=== PATIENT | female | born 1955 | race African-American/Black ===

== ENCOUNTER 2020-03-28 18:14 | Inpatient (IN) | payer MEDICAID, OTHER ==
[~2020-03-28] VITALS: Ht 165.1 cm; Wt 79.8 kg
[2020-03-28] MEDS ORDERED: ONDANSETRON HCL 4MG/2ML INJ IV STA (18:33)
[2020-03-28] MEDS ORDERED: SODIUM CHLORIDE 0.9% 1,000 ML IV ONE (18:33)
[2020-03-28 20:55] LABS: BASOPHILS % 1.1 % (0.0-2.0); EOSINOPHILS % 2.3 % (0.0-5.0); HEMATOCRIT. 34.5 % (36.0-48.0); HEMOGLOBIN. 11.6 g/dL (12.0-16.0); LYMPHOCYTES % 28.2 % (20.0-50.0); MEAN CORPUSCULAR HEMOGLOBIN 31.2 pg (28.0-32.0); MEAN PLATELET VOLUME 8.4 fl (7.4-10.4); MONOCYTES % 12.7 % (2.0-8.0); NEUTROPHILS % 55.7 % (40.0-76.0); PLATELET 263 x1000/uL (130-400); RED BLOOD CELL COUNT 3.71 mill/uL (4.2-5.4); RED CELL DISTRIBUTION WIDTH 16.9 % (11.6-14.6)
[2020-03-28 21:01] LABS: CHLORIDE 91 mEq/L (98-107)
[2020-03-28 21:05] LABS: ETHANOL BLOOD 104 mg/dL
[2020-03-28 22:05] LABS: CLARITY URINE TURBID (CLEAR); COLOR URINE DARK YELLOW (YELLOW); KETONES URINE TRACE (NEGATIVE); LEUKOCYTE ESTERASE URINE 1+ (NEGATIVE); NITRITE URINE NEGATIVE (NEGATIVE); OCCULT BLOOD URINE NEGATIVE (NEGATIVE); PROTEIN URINE 2+ (NEGATIVE); SPECIFIC GRAVITY URINE 1.021 (1.005-1.030)
[2020-03-28 22:20] LABS: CANNABINOID URINE SCREEN NEGATIVE (NEGATIVE); OPIATES URINE SCREEN PRESUMTIVE POSITIVE (NEGATIVE); PHENCYCLIDINE URINE SCREEN NEGATIVE (NEGATIVE)
[2020-03-28 22:21] LABS: *AMPHETAMINES SCREEN URINE NEGATIVE (NEGATIVE); *BARBITURATES SCREEN URINE NEGATIVE (NEGATIVE); *BENZODIAZEPINES SCREEN URINE NEGATIVE (NEGATIVE); *COCAINE SCREEN URINE NEGATIVE (NEGATIVE)
[2020-03-28 22:52] LABS: METHADONE URINE SCREEN PRESUMTIVE POSITIVE (NEGATIVE)
[2020-03-29] MEDS ORDERED: CEFTRIAXONE 1 G PREMIX 50 ML IV NR (00:30)
[2020-03-29] MEDS ORDERED: ONDANSETRON HCL 4MG/2ML INJ IV PRN (13:00)
[2020-03-29] MEDS ORDERED: ACETAMINOPHEN 325MG TABLET PO PRN (13:00)
[2020-03-29] MEDS ORDERED: DOCUSATE SODIUM 100MG CAPSULE PO PRN (13:00)
[2020-03-29 13:36] VITALS: BP 131/77
[2020-03-29] MEDS ORDERED: ENOXAPARIN 30MG/0.3ML SYR SUBCUT SCH (14:00)
[2020-03-29] MEDS ORDERED: DEXTROSE 50% WATER 50ML SYRINGE IV PRN (14:15)
[2020-03-29] MEDS ORDERED: SODIUM BICARBONATE 4% (2.4MEQ) 5ML VIAL IV ONE (14:28)
[2020-03-29] MEDS ORDERED: LIDOCAINE HCL 1% 20ML VIAL (Pyxis) INJ ONE (14:29)
[2020-03-29 16:00] VITALS: BP 140/87
[2020-03-29] MEDS: INSULIN LISPRO 100 UNITS/ML SUBCUT SCH ×2 (17:50→21:45)
[2020-03-29] MEDS: BLOOD SUGAR DIAGNOSTIC STRIP TEST SCH ×2 (17:59→21:29)
[2020-03-29 20:00] VITALS: BP 122/71
[2020-03-29 20:19] LABS: SODIUM URINE RANDOM 40 mEq/L
[2020-03-29] MEDS: SODIUM CHLORIDE 0.9% 1,000 ML IV SCH (21:23)
[2020-03-29] MEDS ORDERED: IPRATROPIUM/ALBUTEROL 0.5-3(2.5)MG/3ML NEB HHN PRN (23:00)
[2020-03-29] MEDS ORDERED: ZOLPIDEM TARTRATE 5MG TABLET PO PRN (23:00)
[2020-03-30] VITALS: BP 129/85
[2020-03-30] MEDS ORDERED: CEFTRIAXONE 1 G PREMIX 50 ML IV SCH ×2 (02:30)
[2020-03-30 04:00] VITALS: BP 125/80
[2020-03-30] MEDS: BLOOD SUGAR DIAGNOSTIC STRIP TEST SCH (07:27)
[2020-03-30 07:30] LABS: HEMATOCRIT. 35.8 % (36.0-48.0); HEMOGLOBIN. 11.8 g/dL (12.0-16.0); MEAN CORPUSCULAR HEMOGLOBIN 30.8 pg (28.0-32.0); MEAN CORPUSCULAR VOLUME 93.5 fL (81.0-99.0); MEAN PLATELET VOLUME 8.9 fl (7.4-10.4); PLATELET 229 x1000/uL (130-400); RED BLOOD CELL COUNT 3.83 mill/uL (4.2-5.4); RED CELL DISTRIBUTION WIDTH 16.6 % (11.6-14.6)
[2020-03-30] MEDS: INSULIN LISPRO 100 UNITS/ML SUBCUT SCH (07:50)
[2020-03-30 08:00] VITALS: BP 129/81
[2020-03-30] MEDS: SODIUM CHLORIDE 0.9% 1,000 ML IV SCH (08:19)
[2020-03-30 10:38] VITALS: BP 129/81
[2020-03-30 13:30] LABS: PLATELET ESTIMATE NORMAL
[2020-03-31 15:06] LABS: ANTI-NUCLEAR ANTIBODIES DIRECT Negative (Negative)
== END 2020-03-30 12:32 | disposition home or self-care (01) | DRG 469 ==
LOC: ER 18:14 → 6EST 03-29 01:15 → ENRESERV 03-29 12:13
PROVIDERS: ADMIT Internal Medicine; ATTEND Internal Medicine
PROC: 02HV33Z Insertion of Infusion Device into Superior Vena Cava, Percutaneous Approach (ICD-10-PCS; principal; 2020-03-29)
PROC: B5181ZA Fluoroscopy of Superior Vena Cava using Low Osmolar Contrast, Guidance (ICD-10-PCS; 2020-03-29)
PROC: B548ZZA Ultrasonography of Superior Vena Cava, Guidance (ICD-10-PCS; 2020-03-29)
DX: N17.0 Acute kidney failure with tubular necrosis (principal); G92 Toxic encephalopathy; E87.1 Hypo-osmolality and hyponatremia; I95.9 Hypotension, unspecified; F10.129 Alcohol abuse with intoxication, unspecified; J45.909 Unspecified asthma, uncomplicated; I50.9 Heart failure, unspecified; I11.0 Hypertensive heart disease with heart failure; N39.0 Urinary tract infection, site not specified; E11.8 Type 2 diabetes mellitus with unspecified complications
CPT/HCPCS: 36415; 36573; 71045; 76770; 76937; 80048; 80053; 80061; 80305; 80320; 81003; 82533; 82550; 82962; 83036; 83880; 83930; 83935; 84300; 84443; 84484; 85025; 86038; 86160; 93005; 93970; 94640; 99285; C1725; J0696; J1650; J1815; J3490; J7030; G0480